=== PATIENT | male | born 1945 | race Caucasian/White ===

== ENCOUNTER 2024-08-04 13:24 | Outpatient (CLI) | payer MEDICARE, OTHER ==
--- NOTE | 2024-08-04 16:05 | RADIOLOGY REPORT ---
EXAM: CT CT HEAD INDICATION: SECONDARY MALIGNANT NEOPLASM OF BRAIN TECHNIQUE: CT of the head without intravenous contrast. Radiation Dose : 1. Head: CT Dose: CTDI volume is 48 mGy. Dose-length product is 933 mGy*cm The dose indicators for CT are the volume Computed Tomography (CT) Dose Index (CTDIvol) and the Dose Length Product (DLP), and are measured in units of mGy and mGy-cm, respectively. These indicators are not patient dose, but values generated from the CT scanner acquisition factors. The report includes radiation exposure data for exposures received during this examination. COMPARISON: None FINDINGS: Left frontal lobe encephalomalacia. Possible hypoattenuating lesion in the left frontal lobe measurin g 2.8 cm. Hypoattenuation in the left epidural space measuring 1.1 cm. The ventricles, sulci and cisterns are age appropriate. The avitia-white differentiation is intact. Patchy periventricular and subcortical white matter hypoattenuation is nonspecific but may be related to small vessel ischemic disease. The visualized paranasal sinuses and mastoid air cells are clear. Left frontal craniotomy. IMPRESSION: Post left frontal craniotomy with 1.1 cm region of hypoattenuation in the left epidural space possibl y representing postsurgical change. Left frontal lobe encephalomalacia with Suggestion of possible hypoattenuating lesion in the left fro ntal lobe measuring 2.8 cm. No prior is available for comparison. Clinical correlation advised. This can be further evaluated wit h MRI of the brain without and with intravenous contrast if clinically indicated.
== END 2024-08-04 23:59 | disposition home or self-care (01) ==
LOC: RAD 13:24
PROVIDERS: ATTEND Registered Nurse
DX: C79.31 Secondary malignant neoplasm of brain (principal); R53.1 Weakness; Z98.890 Other specified postprocedural states
CPT/HCPCS: 70450